=== PATIENT | female | born 1985 | race Caucasian/White ===

== ENCOUNTER 2018-06-22 07:14 | Emergency (ER) | payer BC ==
[2018-06-22 07:19] VITALS: BP 138/84; PULSE 78; TEMP 98.7; BMI 25.0
--- NOTE | 2018-06-22 07:45 | PDOC ---
History of Present Illness - General Chief Complaint: Vomiting/Diarrhea Stated Complaint: VOMITING, DIARRHEA Time Seen by Provider: 06/22/18 07:36 - History of Present Illness Initial Comments: 06/22/18 09:20 Chief complaint: Vomiting History of present illness: Nausea and vomiting since yesterday. Multiple episodes without blood. Unable to tolerate food or fluids. One episode of watery diarrhea. No melena or bloody stool. Occasional crampy abdominal pain, no pain now Review of systems: No fever/chills, headache, sore throat, cough, chest pain, shortness of breath, urinary tract symptoms, vaginal bleeding or discharge other than normal menstrual period occurring now. Past medical history: No history of GI disease, GI surgery. Otherwise healthy, no active medical problems. 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 No smoking or excessive alcohol. No drugs. Family history negative for early coronary artery disease, metabolic disease including diabetes , cancer Physical exam: Alert and oriented well-developed well-nourished no acute distress cheerful and cooperative Afebrile, vital signs normal No pallor or icterus. HEENT normal Neck supple without bruit mass or nodes Chest clear CV regular without murmur rub or gallop. No tachycardia Abdomen nondistended. Bowel sounds normal. Soft without mass tenderness organomegaly. No CVAT Extremities no CCE Skin clear, no rash, adequate turgor and wet mucous membranes Neurological intact Impression: Mild viral gastroenteritis. Plan: Intravenous hydration, antiemetics, observe. CBC and chemistry. Further evaluation and treatment depending on results and response to therapy. Past History - Past Medical History Allergies/Adverse Reactions: Allergies Allergy/AdvReac Type Severity Reaction Status Date / Time No Known Allergies Allergy Verified 06/22/18 07:15 Home Medications: Ambulatory Orders Ondansetron [Zofran Odt -] 4 mg SL TID PRN #10 od.tablet 06/22/18 Asthma: Yes COPD: No - Suicide/Smoking/Psychosocial Hx Smoking History: Current every day smoker Number of Cigarettes Smoked Daily: 10 Information on smoking cessation initiated: Yes Hx Alcohol Use: Yes (SOCIAL/WEEKLY) Drug/Substance Use Hx: No *Physical Exam - Vital Signs Last Vital Signs Temp Pulse Resp BP Pulse Ox 98.7 F 78 16 138/84 98 06/22/18 07:15 06/22/18 07:15 06/22/18 07:15 06/22/18 07:15 06/22/18 07:15 Moderate Sedation - Procedure Monitoring Vital Signs: Procedure Monitoring Vital Signs Temperature 98.7 F 06/22/18 07:15 Pulse Rate 78 06/22/18 07:15 Respiratory Rate 16 06/22/18 07:15 Blood Pressure 138/84 06/22/18 07:15 O2 Sat by Pulse Oximetry (%) 98 06/22/18 07:15 ED Treatment Course - LABORATORY CBC & Chemistry Diagram: 06/22/18 07:54 06/22/18 07:54 Medical Decision Making - Medical Decision Making 06/22/18 08:53 CBC, chemistries, and urinalysis without significant abnormalities Patient feeling much better. Tolerating by mouth fluids. No further vomiting. Still mild nausea. Abdomen remains soft and nontender. Discharged in the company of her , in no significant distress, instructed to continue oral rehydration, Zofran as needed, return to ER if conditions worsen, otherwise follow-up primary physician. *DC/Admit/Observation/Transfer Diagnosis at time of Disposition: Viral gastroenteritis - Discharge Dispostion Disposition: HOME Condition at time of disposition: Improved Decision to Admit order: No - Prescriptions Prescriptions: Ondansetron [Zofran Odt -] 4 mg SL TID PRN #10 od.tablet PRN Reason: Nausea And/Or Vomiting - Referrals Referrals: Chris Mahajan [Primary Care Provider] - 2 Days - Patient Instructions Printed Discharge Instructions: DI for Viral Gastroenteritis -- Adult - Post Discharge Activity Forms/Work/School Notes: Back to Work
[2018-06-22] MEDS ORDERED: SODIUM CHLORIDE 1,000 ML IV STA (07:46)
[2018-06-22] MEDS ORDERED: ONDANSETRON 4 MG/2 ML VIAL IVPB ONE (07:46)
[2018-06-22 07:47] LABS: HCG,QUALITATIVE URINE Negative
[2018-06-22] MEDS ORDERED: ONDANSETRON 4 MG/2 ML VIAL ONE (07:54)
[2018-06-22 07:55] LABS: PH,URINE 7.5 (4.5-8); URINE APPEARANCE Clear; URINE BILIRUBIN Negative (NEGATIVE); URINE COLOR Yellow; URINE GLUCOSE (UA) Negative (NEGATIVE); URINE KETONE Negative (NEGATIVE); URINE LEUK ESTERASE Negative (NEGATIVE); URINE NITRITE Negative (NEGATIVE); URINE PROTEIN Negative (NEGATIVE); URINE UROBILINOGEN 0.2 (0.2-1.0)
[2018-06-22 08:01] LABS: EOS % 5.7 % (0-4.5); HEMOGLOBIN 13.4 GM/dl (10.7-15.3); LYMPH % 29.5 % (8-40); MCH 28.8 pg (25.7-33.7); MCHC 32.6 g/dl (32.0-36.0); MEAN CELL VOLUME 88.4 fl (80-96); MONO % 7.5 % (3.8-10.2); NEUT % 56.3 % (42.8-82.8); PLATELET COUNT 284 K/MM3 (134-434); RBC 4.63 M/mm3 (3.60-5.2); RDW 12.7 % (11.6-15.6); WHITE BLOOD COUNT 4.9 K/mm3 (4.0-10.8)
[2018-06-22 08:16] LABS: ALK PHOS 44 U/L (45-117); ANION GAP 8 MMOL/L (8-16); BILIRUBIN,TOTAL 0.6 mg/dl (0.2-1); BLOOD UREA NITROGEN 5 mg/dl (7-18); CALCIUM 9.2 mg/dl (8.5-10); CHLORIDE 102 mmol/L (98-107); CO2 29 mmol/L (21-32); CREATININE 0.8 mg/dl (0.55-1.3); GLUCOSE,RANDOM 98 mg/dl (74-106); POTASSIUM 3.5 mmol/L (3.5-5.1); SGOT/AST 18 U/L (15-37); SGPT/ALT 12 U/L (13-61); SODIUM 139 mmol/L (136-145); TOT PROT 6.6 g/dl (6.4-8.2)
[2018-06-22 09:30] LABS: EPI CELLS 3+ /HPF; URINE MUCUS 1+; URINE RBC 0-2 /hpf (0-3); URINE WBC 0-2 (0-5)
== END 2018-06-22 09:03 | disposition home or self-care (01) ==
LOC: FER 07:14
PROC: 3E033GC Introduction of Other Therapeutic Substance into Peripheral Vein, Percutaneous Approach (ICD-10-PCS; principal; 2018-06-22)
PROC: 3E0337Z Introduction of Electrolytic and Water Balance Substance into Peripheral Vein, Percutaneous Approach (ICD-10-PCS; 2018-06-22)
DX: A08.4 Viral intestinal infection, unspecified (principal); F17.210 Nicotine dependence, cigarettes, uncomplicated
CPT/HCPCS: 36415; 80053; 81003; 81015; 84703; 85025; 99282-25; J7030